=== PATIENT | female | born 1955 | race African-American/Black ===

== ENCOUNTER 2022-07-01 00:56 | Inpatient (IN) | payer MEDICARE ==
[2022-07-01] MEDS ORDERED: Ondansetron PF 4 MG/2 ML Vial ONE (01:15)
[2022-07-01] MEDS ORDERED: Morphine 4 MG/ML VIAL ONE ×2 (01:15→03:28)
[2022-07-01 01:32] LABS: #Eosinphils 0.1 thou/uL (0.0-0.7); #Monocytes 1.1 thou/uL (0.11-0.59); #Neutrophils 11.2 thou/uL (1.40-6.50); %Basophils 0.2 % (0.0-1.0); %Eosinophils 0.8 % (0.0-10.0); %Lymphocytes 19.6 % (21.0-51.0); %Monocytes 7.1 % (0.0-10.0); %Neutrophils 72.3 % (42.0-75.0); Hemoglobin 11.5 g/dL (12.0-16.0); Mean Corpuscular HGB CONC 32.7 g/dL (32.0-36.0); Mean Corpuscular Hemoglobin 23.3 pg (27.0-31.0); Mean Corpuscular Volume 71.2 fl (78.0-98.0); Mean Platelet Volume 8.3 fL (7.4-10.4); Platelet Count 391 10x3/uL (130-400); RBC Distribution Width 12.9 % (11.5-14.5); Red Blood Cell (RBC) Count 4.94 mill/uL (4.20-5.40); White Blood Cell (WBC) Count 15.4 10x3/uL (4.8-10.8)
[2022-07-01 01:49] LABS: ALT (SGPT) 22 U/L (8-55); AST (SGOT) 18 U/L (5-34); Alkaline Phosphatase 79 U/L (40-110); Anion Gap 16 mmol/L (10-20); BUN (Urea Nitrogen) 12 mg/dL (9.8-20.1); Bilirubin, Total 0.3 mg/dL (0.2-1.2); Calc. Creatinine Clearance 0 mL/min (70-130); Calcium 9.9 mg/dL (7.8-10.44); Carbon Dioxide 25 mmol/L (23-31); Chloride 104 mmol/L (98-107); Estimated GFR 88; Globulin 3.5 g/dL (2.4-3.5); Glucose 135 mg/dL (80-115); Lipase 47 U/L (8-78); Potassium 3.8 mmol/L (3.5-5.1); Protein, Total 7.5 g/dL (5.8-8.1); Sodium 141 mmol/L (136-145)
[2022-07-01 01:52] LABS: Hypochromia SLIGHT = 6-15 cells (100X) (0-5/hpf); MDiff Complete? YES; Microcytosis SLIGHT = 6-15 cells (100X) (0-5/hpf); Platelet Morphology Comment Appears Adequate; Polychromasia SLIGHT = 2-3 cells (100X) (0-2/hpf); Stomatocytes SLIGHT = 2-5 cells (100X) (0-1/hpf); Target Cells SLIGHT = 2-5 cells (100X) (0-1/hpf)
[2022-07-01 02:25] LABS: Bacteria/HPF 2+ HPF (None Seen); Bilirubin Negative (Negative); Blood, Urine Negative (Negative); Clarity Turbid (Clear); Glucose, Urine (Dipstick) Normal (Negative); Ketone, Urine Negative (Negative); Leukocyte 75 Leu/uL (Negative); Nitrite Negative (Negative); Protein, Urine (Dipstick) 50 mg/dL (Neg-Trace); RBC/HPF 0-3 HPF (0-3); Specific Gravity, Urine 1.029 (1.002-1.036)
[2022-07-01] MEDS ORDERED: Ketorolac Tromethamine 30 MG/ML VIAL ONE (04:35)
[2022-07-01] MEDS ORDERED: metroNIDAZOLE 500 MG/100 ML BAG ONE (05:48)
[2022-07-01] MEDS ORDERED: Sodium Chloride 0.9% 1,000 ML IV SCH (06:30)
[2022-07-01 06:40] VITALS: BMI 39.9
[2022-07-01] MEDS: Polyethylene Glycol 3350 17 GM Packet PO SCH (08:18)
[2022-07-01] MEDS: Senokot S 8.6-50 MG TAB PO SCH ×2 (08:18→20:56)
[2022-07-01 08:41] LABS: SARS-CoV-2 NAA Rapid Test Not Detected (NotDetected)
[2022-07-01] MEDS ORDERED: Iopamidol-370 76% 500 ML MDV (1 ML CHARGE) ONE (10:21)
[2022-07-01] MEDS: Ketorolac Tromethamine 30 MG/ML VIAL IVP PRN ×2 (11:31→21:44)
[2022-07-01] MEDS: metroNIDAZOLE 500 MG in Premix Bag 1 BAG IVPB SCH ×2 (14:36→21:40)
[2022-07-01] MEDS ORDERED: GoLYTELY 4,000 ml Bottle PO SCH (17:00)
[2022-07-02] MEDS: Acetaminophen 325 MG TAB PO PRN ×3 (00:40→18:18)
[2022-07-02] MEDS: metroNIDAZOLE 500 MG in Premix Bag 1 BAG IVPB SCH ×2 (05:06→15:36)
[2022-07-02 06:12] LABS: #Eosinphils 0.1 thou/uL (0.0-0.7); #Lymphocytes 3.3 thou/uL (1.20-3.40); #Monocytes 1.2 thou/uL (0.11-0.59); #Neutrophils 9.5 thou/uL (1.40-6.50); %Basophils 0.1 % (0.0-1.0); %Eosinophils 0.6 % (0.0-10.0); %Lymphocytes 23.4 % (21.0-51.0); %Monocytes 8.3 % (0.0-10.0); %Neutrophils 67.6 % (42.0-75.0); Hemoglobin 10.2 g/dL (12.0-16.0); Mean Corpuscular Hemoglobin 23.1 pg (27.0-31.0); Mean Corpuscular Volume 72.2 fl (78.0-98.0); Mean Platelet Volume 8.4 fL (7.4-10.4); Platelet Count 358 10x3/uL (130-400); RBC Distribution Width 12.8 % (11.5-14.5); Red Blood Cell (RBC) Count 4.42 mill/uL (4.20-5.40); White Blood Cell (WBC) Count 14.1 10x3/uL (4.8-10.8)
[2022-07-02 06:35] LABS: ALT (SGPT) 15 U/L (8-55); AST (SGOT) 15 U/L (5-34); Albumin 3.5 g/dL (3.4-4.8); Alkaline Phosphatase 66 U/L (40-110); Anion Gap 12 mmol/L (10-20); BUN (Urea Nitrogen) 10 mg/dL (9.8-20.1); Bilirubin, Total 0.3 mg/dL (0.2-1.2); Calc. Creatinine Clearance 118 mL/min (70-130); Calcium 8.8 mg/dL (7.8-10.44); Carbon Dioxide 23 mmol/L (23-31); Chloride 108 mmol/L (98-107); Estimated GFR 94; Globulin 3.1 g/dL (2.4-3.5); Glucose 91 mg/dL (80-115); Protein, Total 6.6 g/dL (5.8-8.1); Sodium 139 mmol/L (136-145)
[2022-07-02] MEDS: Ketorolac Tromethamine 30 MG/ML VIAL IVP PRN ×2 (08:44→17:19)
[2022-07-02] MEDS: Senokot S 8.6-50 MG TAB PO SCH ×2 (08:50→20:30)
[2022-07-02] MEDS: Polyethylene Glycol 3350 17 GM Packet PO SCH (08:50)
[2022-07-02] MEDS ORDERED: Lidocaine 1% PF 5 ML VIAL ONE ×2 (11:40→20:10)
[2022-07-02] MEDS ORDERED: PROPOFOL 200 MG/20 ML VIAL ONE ×2 (11:40→20:10)
[2022-07-02] MEDS ORDERED: fentaNYL PF 100 MCG/2 ML SYRINGE ONE ×2 (11:43→19:20)
[2022-07-02] MEDS ORDERED: Ondansetron HCl/PF 4 MG/2 ML Vial IVP PRN (12:26)
[2022-07-02] MEDS ORDERED: HYDROmorphone 2 MG/ML VIAL SLOW IVP PRN (12:26)
[2022-07-02] MEDS ORDERED: PACU-Morphine 4MG/ML VIAL SLOW IVP PRN (12:26)
[2022-07-02] MEDS ORDERED: Promethazine HCl 25 MG/ML VIAL IM PRN (12:26)
[2022-07-02] MEDS ORDERED: FENTANYL 50 MCG/ML 1 ML VIAL ONE (12:32)
[2022-07-02] MEDS: Simethicone Chewable 80 MG TAB PO PRN (13:23)
[2022-07-02] MEDS: Sodium Chloride 0.9% 1,000 ML IV SCH (15:36)
[2022-07-02] MEDS ORDERED: Ondansetron PF 4 MG/2 ML Vial ONE (20:10)
[2022-07-02] MEDS ORDERED: Rocuronium Bromide 10 MG/ML (10ML VIAL) ONE (20:10)
[2022-07-02] MEDS ORDERED: Calcium Chloride 1 GM/10 ML Abboject SYRINGE ONE (20:10)
[2022-07-02] MEDS ORDERED: Dexamethasone 20 MG/5 ML VIAL ONE (20:10)
[2022-07-02] MEDS ORDERED: Phenylephrine 10 MG/ML VIAL ONE (20:10)
[2022-07-02] MEDS ORDERED: Albumin 5% 250 ML ONE (22:01)
[2022-07-02] MEDS ORDERED: Rocuronium Bromide 50 MG/5 ML VIAL ONE (22:16)
[2022-07-02] MEDS ORDERED: HYDROmorphone 0.5 MG/0.5 ML SYRINGE ONE (22:58)
[2022-07-02] MEDS ORDERED: SUGAMMADEX SODIUM 200 MG/2 ML VIAL ONE (23:22)
[2022-07-02] MEDS ORDERED: Bupivacaine HCl 0.5%/Epinephrine 1:200,000/PF 30 ml Vial ONE ×2 (23:53→23:54)
[2022-07-03] MEDS ORDERED: Ketorolac Tromethamine 30 MG/ML VIAL ONE (00:22)
[2022-07-03] MEDS ORDERED: FENTANYL 50 MCG/ML 1 ML VIAL ONE ×2 (00:22→00:36)
[2022-07-03] MEDS ORDERED: Ondansetron HCl/PF 4 MG/2 ML Vial IVP PRN (00:25)
[2022-07-03] MEDS ORDERED: Ketorolac Tromethamine 30 MG/ML VIAL IVP PRN (00:25)
[2022-07-03] MEDS: metroNIDAZOLE 500 MG in Premix Bag 1 BAG IVPB SCH ×4 (01:15→21:21)
[2022-07-03] MEDS: Sodium Chloride 0.9% 1,000 ML IV SCH ×3 (04:01→21:22)
[2022-07-03] MEDS: Morphine 2 MG/ML VIAL SLOW IVP PRN (04:01)
[2022-07-03 06:18] LABS: ALT (SGPT) 20 U/L (8-55); AST (SGOT) 28 U/L (5-34); Albumin 2.7 g/dL (3.4-4.8); Alkaline Phosphatase 60 U/L (40-110); Anion Gap 9 mmol/L (10-20); BUN (Urea Nitrogen) 5 mg/dL (9.8-20.1); Bilirubin, Total 1.6 mg/dL (0.2-1.2); Calc. Creatinine Clearance 104 mL/min (70-130); Calcium 8.4 mg/dL (7.8-10.44); Carbon Dioxide 24 mmol/L (23-31); Chloride 107 mmol/L (98-107); Estimated GFR 83; Globulin 2.4 g/dL (2.4-3.5); Glucose 102 mg/dL (80-115); Potassium 4.2 mmol/L (3.5-5.1); Protein, Total 5.1 g/dL (5.8-8.1); Sodium 136 mmol/L (136-145)
[2022-07-03] MEDS: Ketorolac Tromethamine 30 MG/ML VIAL IVP PRN ×3 (06:19→21:20)
[2022-07-03 06:22] LABS: Band 24 % (5-11); Hemoglobin 11.1 g/dL (12.0-16.0); Hypochromia SLIGHT = 6-15 cells (100X) (0-5/hpf); Lymphocytes 4 % (21-51); MDiff Complete? YES; Mean Corpuscular HGB CONC 31.3 g/dL (32.0-36.0); Mean Corpuscular Hemoglobin 22.9 pg (27.0-31.0); Mean Corpuscular Volume 73.1 fl (78.0-98.0); Mean Platelet Volume 8.4 fL (7.4-10.4); Metamyelocyte 2 % (0-0); Monocytes 10 % (0-10); Neutrophil 59 % (42-75); Platelet Count 358 10x3/uL (130-400); Platelet Morphology Comment Appears Adequate; Reactive Lymphocytes 1 % (0-10); Red Blood Cell (RBC) Count 4.85 mill/uL (4.20-5.40); White Blood Cell (WBC) Count 10.5 10x3/uL (4.8-10.8)
[2022-07-03] MEDS ORDERED: Cepastat Lozenges 1 LOZ PO PRN (07:45)
[2022-07-03] MEDS: Acetaminophen 325 MG TAB PO PRN (09:43)
[2022-07-03] MEDS: Famotidine/PF 20 mg/2ml Vial SLOW IVP SCH (21:20)
[2022-07-04] MEDS: Ondansetron PF 4 MG/2 ML Vial IVP PRN (05:09)
[2022-07-04] MEDS: Morphine 2 MG/ML VIAL SLOW IVP PRN (05:09)
[2022-07-04] MEDS: metroNIDAZOLE 500 MG in Premix Bag 1 BAG IVPB SCH (05:09)
[2022-07-04 06:23] LABS: ALT (SGPT) 15 U/L (8-55); AST (SGOT) 18 U/L (5-34); Albumin 2.6 g/dL (3.4-4.8); Alkaline Phosphatase 54 U/L (40-110); Anion Gap 12 mmol/L (10-20); BUN (Urea Nitrogen) 10 mg/dL (9.8-20.1); Bilirubin, Total 0.8 mg/dL (0.2-1.2); Calc. Creatinine Clearance 111 mL/min (70-130); Calcium 8.3 mg/dL (7.8-10.44); Carbon Dioxide 20 mmol/L (23-31); Chloride 109 mmol/L (98-107); Estimated GFR 90; Globulin 2.6 g/dL (2.4-3.5); Glucose 98 mg/dL (80-115); Potassium 4.3 mmol/L (3.5-5.1); Protein, Total 5.2 g/dL (5.8-8.1); Sodium 137 mmol/L (136-145)
[2022-07-04 06:28] LABS: Band 11 % (5-11); Burr Cells SLIGHT = 2-5 cells (100X) (0-1/hpf); Eosinophils 2 % (0-10); Hemoglobin 9.7 g/dL (12.0-16.0); Hypochromia SLIGHT = 6-15 cells (100X) (0-5/hpf); Lymphocytes 4 % (21-51); MDiff Complete? YES; Mean Corpuscular HGB CONC 31.3 g/dL (32.0-36.0); Mean Corpuscular Hemoglobin 22.9 pg (27.0-31.0); Mean Corpuscular Volume 73.1 fl (78.0-98.0); Mean Platelet Volume 8.6 fL (7.4-10.4); Monocytes 5 % (0-10); Neutrophil 78 % (42-75); Platelet Count 314 10x3/uL (130-400); Platelet Morphology Comment Appears Adequate; Polychromasia SLIGHT = 2-3 cells (100X) (0-2/hpf); Red Blood Cell (RBC) Count 4.24 mill/uL (4.20-5.40); Target Cells MODERATE= 6-15 cells (100X) (0-1/hpf); White Blood Cell (WBC) Count 18.7 10x3/uL (4.8-10.8)
[2022-07-04] MEDS ORDERED: Lactated Ringer's 1,000 ML IV SCH (08:45)
[2022-07-04] MEDS ORDERED: Meropenem 1 GM in Sodium Chloride 0.9% 100 ML IVPB SCH (09:00)
[2022-07-04] MEDS: Famotidine/PF 20 mg/2ml Vial SLOW IVP SCH ×2 (09:18→20:16)
[2022-07-04] MEDS: Sodium Chloride 0.9% 1,000 ML IV SCH ×2 (10:30→18:06)
[2022-07-04] MEDS: Meropenem 1 GM in Sodium Chloride 0.9% 100 ML IVPB SCH (18:05)
[2022-07-04] MEDS: Ketorolac Tromethamine 30 MG/ML VIAL IVP PRN (20:16)
[2022-07-04] MEDS: Acetaminophen 325 MG TAB PO PRN (21:07)
[2022-07-05] MEDS: Meropenem 1 GM in Sodium Chloride 0.9% 100 ML IVPB SCH ×3 (00:36→16:41)
[2022-07-05] MEDS: Sodium Chloride 0.9% 1,000 ML IV SCH ×3 (06:02→17:52)
[2022-07-05] MEDS: Acetaminophen 325 MG TAB PO PRN (06:09)
[2022-07-05] MEDS: Morphine 2 MG/ML VIAL SLOW IVP PRN ×2 (08:57→17:52)
[2022-07-05] MEDS: Famotidine/PF 20 mg/2ml Vial SLOW IVP SCH ×2 (10:07→20:12)
[2022-07-05 10:39] LABS: Mean Corpuscular HGB CONC 31.5 g/dL (32.0-36.0); Mean Corpuscular Hemoglobin 22.9 pg (27.0-31.0); Mean Corpuscular Volume 72.5 fl (78.0-98.0); Mean Platelet Volume 9.7 fL (7.4-10.4); Platelet Count 268 10x3/uL (130-400); RBC Distribution Width 12.9 % (11.5-14.5); Red Blood Cell (RBC) Count 3.96 mill/uL (4.20-5.40)
[2022-07-05 10:53] LABS: Band 6 % (5-11); Eosinophils 1 % (0-10); Lymphocytes 5 % (21-51); MDiff Complete? YES; Monocytes 4 % (0-10); Neutrophil 84 % (42-75)
[2022-07-05 11:04] LABS: ALT (SGPT) 13 U/L (8-55); AST (SGOT) 18 U/L (5-34); Albumin 2.2 g/dL (3.4-4.8); Alkaline Phosphatase 68 U/L (40-110); Anion Gap 14 mmol/L (10-20); BUN (Urea Nitrogen) 8 mg/dL (9.8-20.1); Bilirubin, Total 0.5 mg/dL (0.2-1.2); Calc. Creatinine Clearance 132 mL/min (70-130); Calcium 8.4 mg/dL (7.8-10.44); Carbon Dioxide 17 mmol/L (23-31); Chloride 112 mmol/L (98-107); Estimated GFR 97; Glucose 75 mg/dL (80-115); Magnesium 2.2 mg/dL (1.6-2.6); Protein, Total 5.2 g/dL (5.8-8.1); Sodium 139 mmol/L (136-145)
[2022-07-05 11:46] LABS: Phosphorus 2.4 mg/dL (2.3-4.7)
[2022-07-05] MEDS: Ketorolac Tromethamine 30 MG/ML VIAL IVP PRN (16:37)
[2022-07-05] MEDS: Acetaminophen W/ Codeine 5 ML UDCUP PO PRN (16:41)
[2022-07-05] MEDS: Acetaminophen 325 MG/10.15 ML UDCUP PO SCH (17:51)
[2022-07-05 18:02] LABS: Magnesium 2.3 mg/dL (1.6-2.6)
[2022-07-06] MEDS: Meropenem 1 GM in Sodium Chloride 0.9% 100 ML IVPB SCH ×3 (00:04→17:11)
[2022-07-06] MEDS: Acetaminophen 325 MG/10.15 ML UDCUP PO SCH ×4 (00:05→17:10)
[2022-07-06] MEDS: Sodium Chloride 0.9% 1,000 ML IV SCH ×2 (00:05→17:12)
[2022-07-06] MEDS: Ketorolac Tromethamine 30 MG/ML VIAL IVP PRN (02:24)
[2022-07-06 06:40] LABS: Hemoglobin 7.7 g/dL (12.0-16.0); Mean Corpuscular HGB CONC 30.8 g/dL (32.0-36.0); Mean Corpuscular Hemoglobin 22.4 pg (27.0-31.0); Mean Corpuscular Volume 72.9 fl (78.0-98.0); Mean Platelet Volume 8.1 fL (7.4-10.4); Platelet Count 360 10x3/uL (130-400); RBC Distribution Width 12.9 % (11.5-14.5); Red Blood Cell (RBC) Count 3.41 mill/uL (4.20-5.40); White Blood Cell (WBC) Count 21.2 10x3/uL (4.8-10.8)
[2022-07-06 06:53] LABS: ALT (SGPT) 13 U/L (8-55); AST (SGOT) 21 U/L (5-34); Albumin 2.6 g/dL (3.4-4.8); Alkaline Phosphatase 103 U/L (40-110); Anion Gap 9 mmol/L (10-20); BUN (Urea Nitrogen) 8 mg/dL (9.8-20.1); Bilirubin, Total 0.3 mg/dL (0.2-1.2); Calc. Creatinine Clearance 136 mL/min (70-130); Calcium 8.2 mg/dL (7.8-10.44); Carbon Dioxide 21 mmol/L (23-31); Chloride 111 mmol/L (98-107); Estimated GFR 98; Globulin 2.8 g/dL (2.4-3.5); Glucose 139 mg/dL (80-115); Magnesium 2.1 mg/dL (1.6-2.6); Potassium 3.7 mmol/L (3.5-5.1); Protein, Total 5.4 g/dL (5.8-8.1); Sodium 137 mmol/L (136-145)
[2022-07-06 06:56] LABS: Phosphorus 2.4 mg/dL (2.3-4.7)
[2022-07-06] MEDS: Famotidine/PF 20 mg/2ml Vial SLOW IVP SCH ×2 (08:37→20:30)
[2022-07-06] MEDS ORDERED: Potassium Phosphate 15 MMOL in Sodium Chloride 0.9% 250 ML 250 ML IVPB SCH (09:15)
[2022-07-06 09:45] LABS: Band 11 % (5-11); Eosinophils 3 % (0-10); Hypochromia MODERATE=16-30 cells (100X) (0-5/hpf); Lymphocytes 7 % (21-51); MDiff Complete? YES; Microcytosis SLIGHT = 6-15 cells (100X) (0-5/hpf); Monocytes 3 % (0-10); Myelocyte 1 % (0-0); Neutrophil 75 % (42-75); Platelet Morphology Comment Appears Adequate; Polychromasia SLIGHT = 2-3 cells (100X) (0-2/hpf)
[2022-07-06] MEDS: Acetaminophen W/ Codeine 5 ML UDCUP PO PRN ×2 (10:25→18:36)
[2022-07-07] MEDS: Acetaminophen 325 MG/10.15 ML UDCUP PO SCH ×5 (00:31→23:58)
[2022-07-07] MEDS: Meropenem 1 GM in Sodium Chloride 0.9% 100 ML IVPB SCH ×3 (00:31→16:45)
[2022-07-07] MEDS ORDERED: Ketorolac Tromethamine 30 MG/ML VIAL IVP SCH (01:30)
[2022-07-07 06:15] LABS: Hemoglobin 9.2 g/dL (12.0-16.0); Mean Corpuscular Hemoglobin 23.7 pg (27.0-31.0); Mean Platelet Volume 8.4 fL (7.4-10.4); Platelet Count 354 10x3/uL (130-400); RBC Distribution Width 14.3 % (11.5-14.5); Red Blood Cell (RBC) Count 3.87 mill/uL (4.20-5.40); White Blood Cell (WBC) Count 24.7 10x3/uL (4.8-10.8)
[2022-07-07 06:30] LABS: ALT (SGPT) 15 U/L (8-55); AST (SGOT) 27 U/L (5-34); Albumin 2.3 g/dL (3.4-4.8); Alkaline Phosphatase 133 U/L (40-110); Anion Gap 10 mmol/L (10-20); BUN (Urea Nitrogen) 5 mg/dL (9.8-20.1); Bilirubin, Total 0.4 mg/dL (0.2-1.2); Calc. Creatinine Clearance 151 mL/min (70-130); Calcium 8.2 mg/dL (7.8-10.44); Carbon Dioxide 22 mmol/L (23-31); Chloride 109 mmol/L (98-107); Estimated GFR 100; Globulin 3.3 g/dL (2.4-3.5); Glucose 104 mg/dL (80-115); Potassium 3.3 mmol/L (3.5-5.1); Protein, Total 5.6 g/dL (5.8-8.1); Sodium 138 mmol/L (136-145)
[2022-07-07 06:52] LABS: Band 5 % (5-11); Hypochromia SLIGHT = 6-15 cells (100X) (0-5/hpf); Lymphocytes 12 % (21-51); MDiff Complete? YES; Monocytes 6 % (0-10); Neutrophil 77 % (42-75); Platelet Morphology Comment Appears Adequate; Target Cells SLIGHT = 2-5 cells (100X) (0-1/hpf)
[2022-07-07] MEDS ORDERED: Furosemide 20 MG/2 ML VIAL SLOW IVP SCH (09:15)
[2022-07-07] MEDS ORDERED: Potassium Phosphate 30 MMOL in Sodium Chloride 0.9% 250 ML 250 ML IVPB SCH (09:15)
[2022-07-07] MEDS: Acetaminophen W/ Codeine 5 ML UDCUP PO PRN (09:48)
[2022-07-07] MEDS: Ondansetron PF 4 MG/2 ML Vial IVP PRN (11:58)
[2022-07-07] MEDS: Morphine 4 MG/ML VIAL SLOW IVP PRN (14:26)
[2022-07-07] MEDS: Lisinopril 5 MG TAB PO SCH (20:51)
[2022-07-07] MEDS: Metoprolol Tartrate 25 MG TAB PO SCH (20:51)
[2022-07-07] MEDS: Acetaminophen 325 MG TAB PO PRN (20:51)
[2022-07-08] MEDS: Meropenem 1 GM in Sodium Chloride 0.9% 100 ML IVPB SCH ×3 (00:13→17:56)
[2022-07-08] MEDS: Ondansetron PF 4 MG/2 ML Vial IVP PRN ×2 (02:12→17:57)
[2022-07-08] MEDS: Simethicone Chewable 80 MG TAB PO PRN (02:12)
[2022-07-08] MEDS: Acetaminophen 325 MG TAB PO PRN ×2 (05:41→12:36)
[2022-07-08] MEDS: Acetaminophen 325 MG/10.15 ML UDCUP PO SCH ×2 (05:42→11:52)
[2022-07-08 06:08] LABS: ALT (SGPT) 19 U/L (8-55); AST (SGOT) 31 U/L (5-34); Albumin 2.4 g/dL (3.4-4.8); Alkaline Phosphatase 144 U/L (40-110); Anion Gap 9 mmol/L (10-20); BUN (Urea Nitrogen) 5 mg/dL (9.8-20.1); Bilirubin, Total 0.4 mg/dL (0.2-1.2); Calc. Creatinine Clearance 154 mL/min (70-130); Calcium 8.6 mg/dL (7.8-10.44); Carbon Dioxide 26 mmol/L (23-31); Chloride 105 mmol/L (98-107); Estimated GFR 101; Globulin 3.6 g/dL (2.4-3.5); Glucose 93 mg/dL (80-115); Potassium 3.4 mmol/L (3.5-5.1); Sodium 137 mmol/L (136-145)
[2022-07-08 06:10] LABS: Band 11 % (5-11); Eosinophils 1 % (0-10); Hypochromia SLIGHT = 6-15 cells (100X) (0-5/hpf); Lymphocytes 8 % (21-51); MDiff Complete? YES; Mean Corpuscular HGB CONC 30.5 g/dL (32.0-36.0); Mean Corpuscular Hemoglobin 22.5 pg (27.0-31.0); Mean Corpuscular Volume 73.6 fl (78.0-98.0); Mean Platelet Volume 8.4 fL (7.4-10.4); Microcytosis SLIGHT = 6-15 cells (100X) (0-5/hpf); Monocytes 7 % (0-10); Neutrophil 73 % (42-75); Nucleated RBC 2 % (0); Platelet Count 440 10x3/uL (130-400); Platelet Morphology Comment Appears Increased; RBC Distribution Width 14.8 % (11.5-14.5); Red Blood Cell (RBC) Count 3.99 mill/uL (4.20-5.40); White Blood Cell (WBC) Count 25.7 10x3/uL (4.8-10.8)
[2022-07-08] MEDS: Lisinopril 5 MG TAB PO SCH ×2 (09:55→21:25)
[2022-07-08] MEDS: Micafungin 100 MG in Sodium Chloride 0.9% 100 ML IVPB SCH (09:56)
[2022-07-08] MEDS: Metoprolol Tartrate 25 MG TAB PO SCH ×2 (09:56→21:25)
[2022-07-08] MEDS: Potassium Chloride 20 MEQ in Premix Bag 1 BAG IVPB SCH ×2 (15:41→19:58)
[2022-07-08] MEDS: Acetaminophen 325 MG TAB PO SCH ×2 (17:50→18:33)
[2022-07-08] MEDS: Timolol 0.5% Ophth Soln 5 ml Bottle EA EYE SCH (22:50)
[2022-07-08] MEDS: Latanoprost 0.005% Ophth Soln 2.5 ml Bottle EA EYE SCH (22:50)
[2022-07-08] MEDS: Brimonidine Tartrate 0.2% Ophth Soln 5 ml Bottle EA EYE SCH (22:50)
[2022-07-09] MEDS: Acetaminophen 325 MG TAB PO SCH ×4 (00:45→17:05)
[2022-07-09] MEDS: Meropenem 1 GM in Sodium Chloride 0.9% 100 ML IVPB SCH ×3 (00:56→17:05)
[2022-07-09] MEDS: Micafungin 100 MG in Sodium Chloride 0.9% 100 ML IVPB SCH (08:27)
[2022-07-09] MEDS: Lisinopril 5 MG TAB PO SCH ×2 (08:28→21:16)
[2022-07-09] MEDS: Ezetimibe 10 MG TAB PO SCH (08:28)
[2022-07-09] MEDS: Timolol 0.5% Ophth Soln 5 ml Bottle EA EYE SCH ×2 (08:29→21:15)
[2022-07-09] MEDS: Metoprolol Tartrate 25 MG TAB PO SCH ×2 (08:29→21:16)
[2022-07-09] MEDS: Brimonidine Tartrate 0.2% Ophth Soln 5 ml Bottle EA EYE SCH ×2 (08:29→21:15)
[2022-07-09 08:42] LABS: Anion Gap 13 mmol/L (10-20); BUN (Urea Nitrogen) 7 mg/dL (9.8-20.1); Calc. Creatinine Clearance 149 mL/min (70-130); Calcium 8.9 mg/dL (7.8-10.44); Carbon Dioxide 22 mmol/L (23-31); Chloride 105 mmol/L (98-107); Estimated GFR 100; Glucose 90 mg/dL (80-115); Magnesium 2.1 mg/dL (1.6-2.6); Phosphorus 3.2 mg/dL (2.3-4.7); Potassium 3.9 mmol/L (3.5-5.1); Sodium 136 mmol/L (136-145)
[2022-07-09 09:44] LABS: Hemoglobin 9.5 g/dL (12.0-16.0); Mean Corpuscular HGB CONC 31.7 g/dL (32.0-36.0); Mean Corpuscular Hemoglobin 23.5 pg (27.0-31.0); Mean Corpuscular Volume 74.2 fl (78.0-98.0); Mean Platelet Volume 8.4 fL (7.4-10.4); Platelet Count 547 10x3/uL (130-400); RBC Distribution Width 14.8 % (11.5-14.5); Red Blood Cell (RBC) Count 4.02 mill/uL (4.20-5.40); White Blood Cell (WBC) Count 20.9 10x3/uL (4.8-10.8)
[2022-07-09] MEDS ORDERED: Iopamidol-370 76% 500 ML MDV (1 ML CHARGE) ONE (11:24)
[2022-07-09 11:32] LABS: Band 3 % (5-11); Hypochromia SLIGHT = 6-15 cells (100X) (0-5/hpf); Lymphocytes 11 % (21-51); MDiff Complete? YES; Metamyelocyte 1 % (0-0); Microcytosis SLIGHT = 6-15 cells (100X) (0-5/hpf); Monocytes 10 % (0-10); Myelocyte 2 % (0-0); Neutrophil 72 % (42-75); Platelet Morphology Comment Appears Increased; Polychromasia SLIGHT = 2-3 cells (100X) (0-2/hpf); Reactive Lymphocytes 1 % (0-10); Target Cells SLIGHT = 2-5 cells (100X) (0-1/hpf)
[2022-07-09 13:20] LABS: INR-International Normal Ratio 1.1; PTT 36.8 sec (22.9-36.1); Prothrombin Time 14.7 sec (12.0-14.7)
[2022-07-09] MEDS: Morphine 4 MG/ML VIAL SLOW IVP PRN (13:25)
[2022-07-09] MEDS ORDERED: Sodium Bicarbonate 2.5 MEQ/5 ML VIAL ONE (15:11)
[2022-07-09] MEDS ORDERED: Midazolam HCl 2 mg/2 ml Vial ONE (15:11)
[2022-07-09] MEDS ORDERED: FENTANYL 50 MCG/ML 1 ML VIAL ONE (15:11)
[2022-07-09] MEDS: Ondansetron PF 4 MG/2 ML Vial IVP PRN (17:05)
[2022-07-09 18:47] LABS: Body Fluid Source Abscess Fluid; Tube # EDTA
[2022-07-09 18:48] LABS: BF Color Red; Clarity Hazy (Clear)
[2022-07-09] MEDS: Latanoprost 0.005% Ophth Soln 2.5 ml Bottle EA EYE SCH (21:15)
[2022-07-10] MEDS: Acetaminophen 325 MG TAB PO SCH ×4 (01:04→17:55)
[2022-07-10] MEDS: Meropenem 1 GM in Sodium Chloride 0.9% 100 ML IVPB SCH ×3 (01:04→17:54)
[2022-07-10] MEDS: Metoprolol Tartrate 25 MG TAB PO SCH ×2 (09:08→20:54)
[2022-07-10] MEDS: Ezetimibe 10 MG TAB PO SCH (09:12)
[2022-07-10] MEDS: Lisinopril 5 MG TAB PO SCH ×2 (09:12→20:53)
[2022-07-10] MEDS: Micafungin 100 MG in Sodium Chloride 0.9% 100 ML IVPB SCH (09:16)
[2022-07-10] MEDS: Brimonidine Tartrate 0.2% Ophth Soln 5 ml Bottle EA EYE SCH ×2 (09:19→20:54)
[2022-07-10] MEDS: Timolol 0.5% Ophth Soln 5 ml Bottle EA EYE SCH ×2 (09:32→20:54)
[2022-07-10] MEDS: Morphine 4 MG/ML VIAL SLOW IVP PRN (10:38)
[2022-07-10 11:06] LABS: Hemoglobin 9.2 g/dL (12.0-16.0); Mean Corpuscular HGB CONC 32.8 g/dL (32.0-36.0); Mean Corpuscular Hemoglobin 24.2 pg (27.0-31.0); Mean Corpuscular Volume 73.6 fl (78.0-98.0); Mean Platelet Volume 7.9 fL (7.4-10.4); Platelet Count 641 10x3/uL (130-400); Red Blood Cell (RBC) Count 3.81 mill/uL (4.20-5.40); White Blood Cell (WBC) Count 17.5 10x3/uL (4.8-10.8)
[2022-07-10 11:11] LABS: Anion Gap 12 mmol/L (10-20); BUN (Urea Nitrogen) 9 mg/dL (9.8-20.1); Calc. Creatinine Clearance 132 mL/min (70-130); Calcium 8.9 mg/dL (7.8-10.44); Carbon Dioxide 22 mmol/L (23-31); Chloride 105 mmol/L (98-107); Estimated GFR 97; Glucose 105 mg/dL (80-115); Phosphorus 3.3 mg/dL (2.3-4.7); Potassium 3.7 mmol/L (3.5-5.1); Sodium 135 mmol/L (136-145)
[2022-07-10 11:41] LABS: #Eosinphils 0.4 thou/uL (0.0-0.7); #Lymphocytes 2.6 thou/uL (1.20-3.40); #Monocytes 1.5 thou/uL (0.11-0.59); %Basophils 0.1 % (0.0-1.0); %Eosinophils 2.6 % (0.0-10.0); %Lymphocytes 14.7 % (21.0-51.0); %Monocytes 8.6 % (0.0-10.0); Band 2 % (5-11); Eosinophils 1 % (0-10); Lymphocytes 15 % (21-51); MDiff Complete? YES; Metamyelocyte 3 % (0-0); Microcytosis SLIGHT = 6-15 cells (100X) (0-5/hpf); Monocytes 4 % (0-10); Neutrophil 75 % (42-75); Platelet Morphology Comment Appears Increased
[2022-07-10] MEDS: Latanoprost 0.005% Ophth Soln 2.5 ml Bottle EA EYE SCH (20:55)
[2022-07-11] MEDS: Acetaminophen W/ Codeine 5 ML UDCUP PO PRN (00:37)
[2022-07-11] MEDS: Acetaminophen 325 MG TAB PO SCH ×4 (00:37→18:23)
[2022-07-11] MEDS: Meropenem 1 GM in Sodium Chloride 0.9% 100 ML IVPB SCH ×3 (00:38→17:13)
[2022-07-11 06:32] LABS: Hemoglobin 9.6 g/dL (12.0-16.0); Mean Corpuscular HGB CONC 32.6 g/dL (32.0-36.0); Mean Corpuscular Hemoglobin 23.6 pg (27.0-31.0); Mean Corpuscular Volume 72.5 fl (78.0-98.0); Mean Platelet Volume 7.9 fL (7.4-10.4); Platelet Count 731 10x3/uL (130-400); RBC Distribution Width 15.4 % (11.5-14.5); Red Blood Cell (RBC) Count 4.07 mill/uL (4.20-5.40); White Blood Cell (WBC) Count 19.3 10x3/uL (4.8-10.8)
[2022-07-11 06:46] LABS: Phosphorus 3.1 mg/dL (2.3-4.7)
[2022-07-11 06:50] LABS: Anion Gap 12 mmol/L (10-20); BUN (Urea Nitrogen) 11 mg/dL (9.8-20.1); Calc. Creatinine Clearance 138 mL/min (70-130); Calcium 9.2 mg/dL (7.8-10.44); Carbon Dioxide 24 mmol/L (23-31); Chloride 105 mmol/L (98-107); Estimated GFR 98; Glucose 84 mg/dL (80-115); Magnesium 2.3 mg/dL (1.6-2.6); Sodium 137 mmol/L (136-145)
[2022-07-11 06:55] LABS: Band 2 % (5-11); Eosinophils 2 % (0-10); Hypochromia SLIGHT = 6-15 cells (100X) (0-5/hpf); Lymphocytes 13 % (21-51); MDiff Complete? YES; Metamyelocyte 1 % (0-0); Microcytosis SLIGHT = 6-15 cells (100X) (0-5/hpf); Monocytes 8 % (0-10); Myelocyte 3 % (0-0); Neutrophil 71 % (42-75); Platelet Morphology Comment Appears Increased; Target Cells SLIGHT = 2-5 cells (100X) (0-1/hpf)
[2022-07-11] MEDS: Micafungin 100 MG in Sodium Chloride 0.9% 100 ML IVPB SCH (08:12)
[2022-07-11] MEDS: Brimonidine Tartrate 0.2% Ophth Soln 5 ml Bottle EA EYE SCH ×2 (08:13→21:30)
[2022-07-11] MEDS: Lisinopril 5 MG TAB PO SCH ×2 (08:20→21:30)
[2022-07-11] MEDS: Ezetimibe 10 MG TAB PO SCH (08:20)
[2022-07-11] MEDS: Metoprolol Tartrate 25 MG TAB PO SCH ×2 (08:22→21:30)
[2022-07-11] MEDS: Timolol 0.5% Ophth Soln 5 ml Bottle EA EYE SCH ×2 (08:22→21:29)
[2022-07-11] MEDS: Latanoprost 0.005% Ophth Soln 2.5 ml Bottle EA EYE SCH (21:30)
[2022-07-12] MEDS: Acetaminophen 325 MG TAB PO SCH ×5 (00:15→23:54)
[2022-07-12] MEDS: Meropenem 1 GM in Sodium Chloride 0.9% 100 ML IVPB SCH ×3 (00:15→21:24)
[2022-07-12 05:18] LABS: #Eosinphils 0.2 thou/uL (0.0-0.7); #Lymphocytes 2.2 thou/uL (1.20-3.40); #Monocytes 1.5 thou/uL (0.11-0.59); #Neutrophils 14.8 thou/uL (1.40-6.50); %Basophils 0.2 % (0.0-1.0); %Lymphocytes 11.7 % (21.0-51.0); %Monocytes 7.9 % (0.0-10.0); %Neutrophils 79.3 % (42.0-75.0); Hemoglobin 9.2 g/dL (12.0-16.0); Mean Corpuscular HGB CONC 31.8 g/dL (32.0-36.0); Mean Corpuscular Hemoglobin 23.1 pg (27.0-31.0); Mean Corpuscular Volume 72.7 fl (78.0-98.0); Mean Platelet Volume 7.5 fL (7.4-10.4); Platelet Count 762 10x3/uL (130-400); RBC Distribution Width 15.5 % (11.5-14.5); Red Blood Cell (RBC) Count 3.96 mill/uL (4.20-5.40); White Blood Cell (WBC) Count 18.7 10x3/uL (4.8-10.8)
[2022-07-12 05:36] LABS: Anion Gap 13 mmol/L (10-20); BUN (Urea Nitrogen) 9 mg/dL (9.8-20.1); Calc. Creatinine Clearance 143 mL/min (70-130); Calcium 9.1 mg/dL (7.8-10.44); Carbon Dioxide 23 mmol/L (23-31); Chloride 104 mmol/L (98-107); Estimated GFR 99; Glucose 88 mg/dL (80-115); Potassium 3.8 mmol/L (3.5-5.1); Sodium 136 mmol/L (136-145)
[2022-07-12] MEDS: Brimonidine Tartrate 0.2% Ophth Soln 5 ml Bottle EA EYE SCH ×2 (09:26→21:18)
[2022-07-12] MEDS: Timolol 0.5% Ophth Soln 5 ml Bottle EA EYE SCH ×2 (09:26→21:18)
[2022-07-12] MEDS: Saccharomyces boulardii 250 MG CAP PO SCH (09:26)
[2022-07-12] MEDS: Micafungin 100 MG in Sodium Chloride 0.9% 100 ML IVPB SCH (09:26)
[2022-07-12] MEDS: Lisinopril 5 MG TAB PO SCH ×2 (09:27→21:17)
[2022-07-12] MEDS: Ezetimibe 10 MG TAB PO SCH (09:27)
[2022-07-12] MEDS: Metoprolol Tartrate 25 MG TAB PO SCH ×2 (09:27→21:17)
[2022-07-12] MEDS: Acetaminophen/Codeine 30-300mg Tablet PO PRN (09:27)
[2022-07-12] MEDS: Latanoprost 0.005% Ophth Soln 2.5 ml Bottle EA EYE SCH (21:18)
[2022-07-13] MEDS: Acetaminophen/Codeine 30-300mg Tablet PO PRN ×3 (05:50→23:37)
[2022-07-13] MEDS: Meropenem 1 GM in Sodium Chloride 0.9% 100 ML IVPB SCH ×3 (05:51→20:19)
[2022-07-13] MEDS: Acetaminophen 325 MG TAB PO SCH ×4 (05:51→23:38)
[2022-07-13 05:55] LABS: Anion Gap 11 mmol/L (10-20); BUN (Urea Nitrogen) 10 mg/dL (9.8-20.1); Calc. Creatinine Clearance 141 mL/min (70-130); Calcium 9.2 mg/dL (7.8-10.44); Carbon Dioxide 23 mmol/L (23-31); Chloride 105 mmol/L (98-107); Estimated GFR 98; Glucose 87 mg/dL (80-115); Potassium 3.9 mmol/L (3.5-5.1); Sodium 135 mmol/L (136-145)
[2022-07-13 06:01] LABS: #Eosinphils 0.2 thou/uL (0.0-0.7); #Lymphocytes 2.6 thou/uL (1.20-3.40); #Monocytes 1.6 thou/uL (0.11-0.59); #Neutrophils 13.8 thou/uL (1.40-6.50); %Basophils 0.1 % (0.0-1.0); %Eosinophils 0.9 % (0.0-10.0); %Lymphocytes 14.2 % (21.0-51.0); %Monocytes 8.6 % (0.0-10.0); %Neutrophils 76.2 % (42.0-75.0); Hemoglobin 9.1 g/dL (12.0-16.0); Mean Corpuscular HGB CONC 30.5 g/dL (32.0-36.0); Mean Corpuscular Hemoglobin 22.5 pg (27.0-31.0); Mean Corpuscular Volume 73.8 fl (78.0-98.0); Mean Platelet Volume 7.5 fL (7.4-10.4); Platelet Count 952 10x3/uL (130-400); RBC Distribution Width 15.6 % (11.5-14.5); Red Blood Cell (RBC) Count 4.02 mill/uL (4.20-5.40); White Blood Cell (WBC) Count 18.2 10x3/uL (4.8-10.8)
[2022-07-13] MEDS: Morphine 4 MG/ML VIAL SLOW IVP PRN (07:55)
[2022-07-13] MEDS: Lisinopril 5 MG TAB PO SCH ×2 (08:16→20:21)
[2022-07-13] MEDS ORDERED: Fentanyl 250 MCG/5 ML VIAL ONE (10:00)
[2022-07-13] MEDS ORDERED: SUGAMMADEX SODIUM 200 MG/2 ML VIAL ONE (10:13)
[2022-07-13] MEDS ORDERED: Famotidine/PF 20 mg/2ml Vial ONE (10:13)
[2022-07-13] MEDS ORDERED: PROPOFOL 200 MG/20 ML VIAL ONE (10:19)
[2022-07-13] MEDS ORDERED: ePHEDrine 50 MG/ML VIAL ONE (10:19)
[2022-07-13] MEDS ORDERED: Lidocaine 1% PF 5 ML VIAL ONE (10:19)
[2022-07-13] MEDS ORDERED: Ondansetron PF 4 MG/2 ML Vial ONE (10:19)
[2022-07-13] MEDS ORDERED: Rocuronium Bromide 10 MG/ML (10ML VIAL) ONE (10:19)
[2022-07-13] MEDS ORDERED: Phenylephrine 10 MG/ML VIAL ONE (10:19)
[2022-07-13] MEDS ORDERED: HYDROmorphone 2 MG/ML VIAL SLOW IVP PRN (11:08)
[2022-07-13] MEDS ORDERED: Promethazine HCl 25 MG/ML VIAL IM PRN (11:08)
[2022-07-13] MEDS: Micafungin 100 MG in Sodium Chloride 0.9% 100 ML IVPB SCH (12:59)
[2022-07-13] MEDS: Ezetimibe 10 MG TAB PO SCH (13:00)
[2022-07-13] MEDS: Aspirin 325 MG TAB PO SCH (13:00)
[2022-07-13] MEDS: Timolol 0.5% Ophth Soln 5 ml Bottle EA EYE SCH ×2 (13:01→20:23)
[2022-07-13] MEDS: Saccharomyces boulardii 250 MG CAP PO SCH (13:01)
[2022-07-13] MEDS: Brimonidine Tartrate 0.2% Ophth Soln 5 ml Bottle EA EYE SCH ×2 (13:02→20:22)
[2022-07-13] MEDS: Metoprolol Tartrate 25 MG TAB PO SCH ×2 (13:03→20:21)
[2022-07-13] MEDS: Latanoprost 0.005% Ophth Soln 2.5 ml Bottle EA EYE SCH (20:22)
[2022-07-14] MEDS: Meropenem 1 GM in Sodium Chloride 0.9% 100 ML IVPB SCH ×2 (05:18→14:10)
[2022-07-14] MEDS: Acetaminophen 325 MG TAB PO SCH ×3 (05:18→17:17)
[2022-07-14 06:16] LABS: #Eosinphils 0.2 thou/uL (0.0-0.7); #Monocytes 1.3 thou/uL (0.11-0.59); #Neutrophils 12.9 thou/uL (1.40-6.50); %Eosinophils 1.5 % (0.0-10.0); %Lymphocytes 12.1 % (21.0-51.0); %Monocytes 7.6 % (0.0-10.0); %Neutrophils 78.8 % (42.0-75.0); Hemoglobin 9.1 g/dL (12.0-16.0); Mean Corpuscular HGB CONC 31.6 g/dL (32.0-36.0); Mean Corpuscular Hemoglobin 23.1 pg (27.0-31.0); Mean Corpuscular Volume 73.1 fl (78.0-98.0); Mean Platelet Volume 7.2 fL (7.4-10.4); Platelet Count 882 10x3/uL (130-400); RBC Distribution Width 15.7 % (11.5-14.5); Red Blood Cell (RBC) Count 3.96 mill/uL (4.20-5.40); White Blood Cell (WBC) Count 16.4 10x3/uL (4.8-10.8)
[2022-07-14 06:36] LABS: Anion Gap 13 mmol/L (10-20); BUN (Urea Nitrogen) 5 mg/dL (9.8-20.1); Calc. Creatinine Clearance 146 mL/min (70-130); Calcium 8.8 mg/dL (7.8-10.44); Carbon Dioxide 24 mmol/L (23-31); Chloride 103 mmol/L (98-107); Estimated GFR 99; Glucose 87 mg/dL (80-115); Sodium 136 mmol/L (136-145)
[2022-07-14] MEDS: Aspirin 325 MG TAB PO SCH (08:12)
[2022-07-14] MEDS: Brimonidine Tartrate 0.2% Ophth Soln 5 ml Bottle EA EYE SCH (08:13)
[2022-07-14] MEDS: Timolol 0.5% Ophth Soln 5 ml Bottle EA EYE SCH (08:13)
[2022-07-14] MEDS: Saccharomyces boulardii 250 MG CAP PO SCH (08:13)
[2022-07-14] MEDS: Lisinopril 5 MG TAB PO SCH (08:13)
[2022-07-14] MEDS: Ezetimibe 10 MG TAB PO SCH (08:13)
[2022-07-14] MEDS: Metoprolol Tartrate 25 MG TAB PO SCH (08:13)
[2022-07-14] MEDS: metroNIDAZOLE 500 MG TAB PO SCH ×2 (08:58→14:10)
[2022-07-14] MEDS: Micafungin 100 MG in Sodium Chloride 0.9% 100 ML IVPB SCH (08:58)
[2022-07-14] MEDS ORDERED: Iopamidol-370 76% 500 ML MDV (1 ML CHARGE) ONE (09:23)
[2022-07-14] MEDS: Morphine 4 MG/ML VIAL SLOW IVP PRN (10:08)
[2022-07-14 16:34] VITALS: BP 112/66; TEMP 98.5
[2022-07-14] MEDS ORDERED: Ciprofloxacin 500 MG TAB PO SCH (20:00)
== END 2022-07-14 17:25 | disposition home health service (06) | DRG 329 ==
LOC: ERS 00:56 → SURG A 05:07
PROVIDERS: ADMIT Family Medicine; ATTEND Family Medicine
PROC: 0DBN0ZZ Excision of Sigmoid Colon, Open Approach (ICD-10-PCS; principal; 2022-07-02)
PROC: 0D1B0Z4 Bypass Ileum to Cutaneous, Open Approach (ICD-10-PCS; 2022-07-02)
PROC: 0DBF0ZZ Excision of Right Large Intestine, Open Approach (ICD-10-PCS; 2022-07-02)
PROC: 0DJD8ZZ Inspection of Lower Intestinal Tract, Via Natural or Artificial Opening Endoscopic (ICD-10-PCS; 2022-07-02)
PROC: 30233N1 Transfusion of Nonautologous Red Blood Cells into Peripheral Vein, Percutaneous Approach (ICD-10-PCS; 2022-07-06)
PROC: 0D9W30Z Drainage of Peritoneum with Drainage Device, Percutaneous Approach (ICD-10-PCS; 2022-07-12)
PROC: 0WQF0ZZ Repair Abdominal Wall, Open Approach (ICD-10-PCS; 2022-07-13)
DX: C18.7 Malignant neoplasm of sigmoid colon (principal); K35.33 Acute appendicitis with perforation, localized peritonitis, and gangrene, with abscess; D62 Acute posthemorrhagic anemia; N30.00 Acute cystitis without hematuria; R65.10 Systemic inflammatory response syndrome (SIRS) of non-infectious origin without acute organ dysfunction; Z20.822 Contact with and (suspected) exposure to COVID-19; I10 Essential (primary) hypertension; E87.6 Hypokalemia; K21.9 Gastro-esophageal reflux disease without esophagitis; E66.01 Morbid (severe) obesity due to excess calories; G62.9 Polyneuropathy, unspecified; E78.2 Mixed hyperlipidemia; D50.9 Iron deficiency anemia, unspecified; Z88.0 Allergy status to penicillin; Z68.39 Body mass index [BMI] 39.0-39.9, adult; Z90.710 Acquired absence of both cervix and uterus; Z87.891 Personal history of nicotine dependence; Z79.899 Other long term (current) drug therapy
CPT/HCPCS: 36415; 36430; 49020; 71045; 71260; 74018; 74177; 77002; 80048; 80053; 81003; 81015; 82378; 82533; 83605; 83690; 83735; 84100; 84484; 85025; 85060; 85610; 85730; 86850; 86900; 86901; 87040; 87070; 87086; 87205; 87811; 88305; 88307; 88309; 88341; 88342; 89051; 93005; 93010; 96374; 96375; 96376; 97139; A4649; C1713; J1100; J1170; J1650; J1885; J1940; J1956; J2185; J2248; J2250; J2270; J2272; J2370; J2405; J2704; J3010; J3480; J3490; J7050; J7120; P9016; P9045; Q9967; S0028; U0002

== ENCOUNTER 2022-07-17 13:15 | Emergency (ER) | payer MEDICARE ==
[2022-07-17 13:46] LABS: #Basophils 0.1 thou/uL (0.0-0.2); #Eosinphils 0.2 thou/uL (0.0-0.7); #Lymphocytes 2.2 thou/uL (1.20-3.40); #Monocytes 1.2 thou/uL (0.11-0.59); #Neutrophils 10.3 thou/uL (1.40-6.50); %Basophils 0.4 % (0.0-1.0); %Eosinophils 1.6 % (0.0-10.0); %Lymphocytes 15.6 % (21.0-51.0); %Monocytes 8.4 % (0.0-10.0); %Neutrophils 74.1 % (42.0-75.0); Hemoglobin 9.5 g/dL (12.0-16.0); Mean Corpuscular HGB CONC 31.8 g/dL (32.0-36.0); Mean Corpuscular Hemoglobin 23.2 pg (27.0-31.0); Mean Corpuscular Volume 72.9 fl (78.0-98.0); Platelet Count 1026 10x3/uL (130-400); RBC Distribution Width 16.1 % (11.5-14.5); Red Blood Cell (RBC) Count 4.08 mill/uL (4.20-5.40); White Blood Cell (WBC) Count 13.9 10x3/uL (4.8-10.8)
[2022-07-17 14:10] LABS: ALT (SGPT) 19 U/L (8-55); AST (SGOT) 21 U/L (5-34); Albumin 3.2 g/dL (3.4-4.8); Alkaline Phosphatase 210 U/L (40-110); Anion Gap 15 mmol/L (10-20); BUN (Urea Nitrogen) 5 mg/dL (9.8-20.1); Bilirubin, Total 0.2 mg/dL (0.2-1.2); Calc. Creatinine Clearance 0 mL/min (70-130); Calcium 9.4 mg/dL (7.8-10.44); Carbon Dioxide 22 mmol/L (23-31); Chloride 105 mmol/L (98-107); Estimated GFR 95; Globulin 5.2 g/dL (2.4-3.5); Glucose 131 mg/dL (80-115); Potassium 3.9 mmol/L (3.5-5.1); Protein, Total 8.4 g/dL (5.8-8.1); Sodium 138 mmol/L (136-145)
[2022-07-17] MEDS ORDERED: Iopamidol-370 76% 500 ML MDV (1 ML CHARGE) ONE (14:50)
[2022-07-17 15:57] LABS: Lipase 132 U/L (8-78)
[2022-07-17 15:58] LABS: CK (CPK) 30 U/L (29-168)
[2022-07-17 17:04] LABS: Lactic Acid 1.4 mmol/L (0.5-2.2)
[2022-07-17 17:41] LABS: Bilirubin Negative (Negative); Blood, Urine Negative (Negative); Clarity Clear (Clear); Glucose, Urine (Dipstick) Normal (Negative); Ketone, Urine Negative (Negative); Leukocyte Negative Leu/uL (Negative); Nitrite Negative (Negative); Protein, Urine (Dipstick) 20 mg/dL (Neg-Trace); Urobilinogen Normal mg/dL (Less than 2); pH, Urine 6.5 (5.0-9.0)
[2022-07-17 17:42] LABS: Specific Gravity, Urine 1.058 (1.002-1.036)
== END 2022-07-17 18:05 | disposition home or self-care (01) ==
LOC: ERS 13:15
DX: R10.9 Unspecified abdominal pain (principal); D72.829 Elevated white blood cell count, unspecified; E78.00 Pure hypercholesterolemia, unspecified; I10 Essential (primary) hypertension
CPT/HCPCS: 36415; 51701; 71275; 80053; 81003; 82550; 83605; 83690; 83880; 84484; 85025; 85379; 87040; 93005; Q9967

== ENCOUNTER 2022-08-04 10:33 | Outpatient (CLI) | payer MEDICARE ==
[2022-08-04 12:47] LABS: #Eosinphils 0.2 10x3/uL (0.0-0.5); #Monocytes 1.1 10x3/uL (0.0-1.1); #Neutrophils 4.8 10x3/uL (1.5-8.4); %Basophils 0.4 % (0.0-2.0); %Eosinophils 1.7 % (0.0-6.0); %Lymphocytes 31.7 % (18.0-47.0); %Monocytes 12.4 % (0.0-10.0); %Neutrophils 53.2 % (40.0-75.0); Mean Corpuscular HGB CONC 29.7 g/dL (32.0-36.0); Mean Corpuscular Hemoglobin 20.8 pg (27.0-33.0); Mean Platelet Volume 10.7 fl (7.4-10.4); Platelet Count 498 10x3/uL (150-450); RBC Distribution Width 16.5 % (11.5-14.5); Red Blood Cell (RBC) Count 4.33 10x6/uL (3.90-5.03); White Blood Cell (WBC) Count 9.1 10x3/uL (3.5-10.5)
[2022-08-04 13:14] LABS: Anisocytosis SLIGHT = 6-15 cells (100X) (0-5/hpf); Hypochromia SLIGHT = 6-15 cells (100X) (0-5/hpf); Macrocytosis SLIGHT = 6-15 cells (100X) (0-5/hpf); Microcytosis SLIGHT = 6-15 cells (100X) (0-5/hpf); Platelet Morphology Comment Appears Increased
[2022-08-04 13:15] LABS: Anion Gap 14 mmol/L (10-20); BUN (Urea Nitrogen) 9 mg/dL (9.8-20.1); Calc. Creatinine Clearance 0 mL/min (70-130); Calcium 9.7 mg/dL (7.8-10.44); Carbon Dioxide 24 mmol/L (23-31); Chloride 105 mmol/L (98-107); Estimated GFR 94; Glucose 125 mg/dL (80-115); Potassium 4.2 mmol/L (3.5-5.1); Sodium 139 mmol/L (136-145); Stomatocytes SLIGHT = 2-5 cells (100X) (0-1/hpf); Target Cells SLIGHT = 2-5 cells (100X) (0-1/hpf)
== END 2022-08-04 10:34 | disposition home or self-care (01) ==
LOC: LABBT 10:33
PROVIDERS: ATTEND Specialist
DX: Z01.818 Encounter for other preprocedural examination (principal); C18.9 Malignant neoplasm of colon, unspecified
CPT/HCPCS: 71046; 80048; 85025; 93005; 93010

== ENCOUNTER 2022-08-06 09:40 | Day surgery (SDC) | payer MEDICARE ==
[2022-08-05 12:34] VITALS: BMI 35.1
[2022-08-06] MEDS ORDERED: Ketorolac Tromethamine 30 MG/ML VIAL ONE (10:23)
[2022-08-06] MEDS ORDERED: Acetaminophen 500 MG TAB ONE (10:23)
[2022-08-06] MEDS ORDERED: Lidocaine 1% (PF) 30 ML VIAL ONE (10:35)
[2022-08-06] MEDS ORDERED: Bupivacaine/Epinephrine 0.25% 30 ML VIAL ONE (10:35)
[2022-08-06] MEDS ORDERED: Propofol 500 MG/50 ML VIAL ONE (10:55)
[2022-08-06] MEDS ORDERED: fentaNYL PF 100 MCG/2 ML SYRINGE ONE (10:55)
[2022-08-06] MEDS ORDERED: Sodium Chloride 0.9% 100 ML ONE (12:36)
[2022-08-06] MEDS ORDERED: CEFAZOLIN 2 GM VIAL ONE (12:36)
[2022-08-06] MEDS ORDERED: Phenylephrine 10 MG/ML VIAL ONE (12:46)
== END 2022-08-06 14:10 | disposition home or self-care (01) ==
LOC: SDC 09:40
PROVIDERS: ATTEND Specialist
PROC: 0JH60WZ Insertion of Totally Implantable Vascular Access Device into Chest Subcutaneous Tissue and Fascia, Open Approach (ICD-10-PCS; principal; 2022-08-06)
PROC: 02HV33Z Insertion of Infusion Device into Superior Vena Cava, Percutaneous Approach (ICD-10-PCS; 2022-08-06)
DX: C18.7 Malignant neoplasm of sigmoid colon (principal); C77.9 Secondary and unspecified malignant neoplasm of lymph node, unspecified; Z79.82 Long term (current) use of aspirin; Z79.899 Other long term (current) drug therapy; Z88.0 Allergy status to penicillin; Z93.2 Ileostomy status; Z90.49 Acquired absence of other specified parts of digestive tract
CPT/HCPCS: 36561; 71045; C1788; J1642; J1885; J2001; J2370; J2704; J3490

== ENCOUNTER 2022-12-01 07:09 | Outpatient (CLI) | payer MEDICARE ==
[2022-12-01] MEDS ORDERED: Iopamidol 300 61% 30 ML VIAL ONE (09:21)
== END 2022-12-01 07:10 | disposition home or self-care (01) ==
LOC: RAD 07:09
PROVIDERS: ATTEND Internal Medicine
DX: Z45.2 Encounter for adjustment and management of vascular access device (principal); T82.598A Other mechanical complication of other cardiac and vascular devices and implants, initial encounter; C18.9 Malignant neoplasm of colon, unspecified
CPT/HCPCS: 36598; Q9967

== ENCOUNTER 2022-12-09 06:03 | Day surgery (SDC) | payer MEDICARE ==
[2022-12-08 10:55] VITALS: BMI 35.1
[2022-12-09] MEDS ORDERED: Propofol 1,000 MG/100 ML VIAL IV ONE (06:39)
[2022-12-09] MEDS ORDERED: fentaNYL PF 100 MCG/2 ML SYRINGE ONE (06:39)
[2022-12-09] MEDS ORDERED: EPINEPHrine 1 MG/ML AMP ONE (06:45)
[2022-12-09] MEDS ORDERED: Bupivacaine 0.25% HCL 30 ML VIAL ONE (06:45)
[2022-12-09] MEDS ORDERED: Lidocaine 1% (PF) 30 ML VIAL ONE (06:45)
[2022-12-09] MEDS ORDERED: Dexamethasone 20 MG/5 ML VIAL ONE (07:53)
[2022-12-09] MEDS ORDERED: PHENYLEPHRINE-NS 100 MCG/ML 10 ML SYRINGE ONE (07:53)
[2022-12-09] MEDS ORDERED: Ondansetron PF 4 MG/2 ML Vial ONE (07:53)
[2022-12-09] MEDS ORDERED: PROPOFOL 200 MG/20 ML VIAL ONE (07:53)
[2022-12-09] MEDS ORDERED: Lidocaine 1% PF 5 ML VIAL ONE (07:53)
== END 2022-12-09 10:59 | disposition home or self-care (01) ==
LOC: SDC 06:03
PROVIDERS: ATTEND Specialist
PROC: 0JH60WZ Insertion of Totally Implantable Vascular Access Device into Chest Subcutaneous Tissue and Fascia, Open Approach (ICD-10-PCS; principal; 2022-12-09)
DX: T82.598A Other mechanical complication of other cardiac and vascular devices and implants, initial encounter (principal); C18.9 Malignant neoplasm of colon, unspecified; Z88.0 Allergy status to penicillin; Z79.82 Long term (current) use of aspirin; Z79.899 Other long term (current) drug therapy
CPT/HCPCS: 36561; 71045; C1788; J0171; J1100; J1642; J2001; J2405; J2704; S0020

== ENCOUNTER 2023-06-20 09:01 | Outpatient (CLI) | payer MEDICARE | END 2023-06-20 09:02 | disposition home or self-care (01) | LOC: CT 09:01 | PROVIDERS: ATTEND Internal Medicine | DX: C18.9 Malignant neoplasm of colon, unspecified (principal); R91.8 Other nonspecific abnormal finding of lung field; K80.20 Calculus of gallbladder without cholecystitis without obstruction; Z90.49 Acquired absence of other specified parts of digestive tract; Z93.2 Ileostomy status | CPT/HCPCS: 71260; 74177; 82565 ==

== ENCOUNTER 2023-09-14 08:39 | Outpatient (CLI) | payer MEDICARE | END 2023-09-14 08:40 | disposition home or self-care (01) | LOC: CT 08:39 | PROVIDERS: ATTEND Internal Medicine | DX: C18.9 Malignant neoplasm of colon, unspecified (principal) | CPT/HCPCS: 71260; 74177 ==

== ENCOUNTER 2023-11-08 08:21 | Outpatient (CLI) | payer MEDICARE ==
[2023-11-08] MEDS ORDERED: Iopamidol 370 76% 100 ML VIAL ONE (15:06)
== END 2023-11-08 08:22 | disposition home or self-care (01) ==
LOC: CT 08:21
PROVIDERS: ATTEND Internal Medicine
DX: C18.9 Malignant neoplasm of colon, unspecified (principal); K80.20 Calculus of gallbladder without cholecystitis without obstruction; R59.0 Localized enlarged lymph nodes
CPT/HCPCS: 71260; 74177; Q9967

== ENCOUNTER 2024-01-09 11:06 | Outpatient (CLI) | payer MEDICARE ==
[~2024-01-09 11:06] MED LIST: Iopamidol 370 76% 100 ML VIAL ONE
== END 2024-01-09 11:07 | disposition home or self-care (01) ==
LOC: BICCT 11:06
PROVIDERS: ATTEND Internal Medicine
DX: C18.9 Malignant neoplasm of colon, unspecified (principal); N39.0 Urinary tract infection, site not specified; R59.0 Localized enlarged lymph nodes
CPT/HCPCS: 71260; 74177; 82565; Q9967

== ENCOUNTER 2024-04-16 10:45 | Outpatient (CLI) | payer MEDICARE | END 2024-04-16 10:46 | disposition home or self-care (01) | LOC: CT 10:45 | PROVIDERS: ATTEND Internal Medicine | DX: C18.9 Malignant neoplasm of colon, unspecified (principal); D70.9 Neutropenia, unspecified; N39.0 Urinary tract infection, site not specified; C77.9 Secondary and unspecified malignant neoplasm of lymph node, unspecified; Z90.49 Acquired absence of other specified parts of digestive tract | CPT/HCPCS: 71260; 74177 ==